=== PATIENT | female | born 1995 | race Caucasian/White ===

== ENCOUNTER 2024-07-25 11:02 | Outpatient (CLI) | payer OTHER, SELFPAY ==
[2024-07-25 11:32] LABS: Basophils Percent Auto 0.4 % (0.2-1.2); Eosinophils Absolute Auto 0.3 K/mm3 (0-0.3); Eosinophils Percent Auto 2.8 % (0-4.4); Hematocrit 39.8 % (37.0-47.0); Hemoglobin 12.9 g/dL (12.0-15.0); Immature Granulocyte Absolute 0.03 K/mm3 (0.00-0.031); Immature Granulocyte Percent A 0.3 % (0-0.5); Lymphocytes Absolute Auto 2.09 K/mm3 (0.9-3.2); Mean Corpuscular HGB Conc 32.4 g/dl (32-36); Mean Corpuscular Hemoglobin 28.2 pg (26-34); Mean Corpuscular Volume 87.1 fl (80-100); Mean Platelet Volume 9.2 fl (7.4-10.4); Monocytes Absolute Auto 0.6 K/mm3 (0.1-0.6); Monocytes Percent Auto 6.7 % (2.6-8.5); Neutrophils Absolute Auto 6.1 K/mm3 (1.3-6.7); Neutrophils Percent Auto 66.8 % (45.5-73.1); Platelet Count Result 280 k/mm3 (150-375); Red Blood Count 4.57 M/mm3 (4.2-5.4); White Blood Count 9.1 K/mm3 (4.5-10.0)
[2024-07-25 11:48] LABS: Anion Gap 9 mmol/L (4-12); Blood Urea Nitrogen 14 mg/dL (7-17); Carbon Dioxide 23 mmol/L (22-30); Chloride 106 mmol/L (98-107); Cholesterol 192 mg/dL (0-200); Estimated Glomerular Filt Rate > 60; Glucose 97 mg/dL (65-110); HDL Direct 52 mg/dL; Potassium 3.9 mmol/L (3.4-5.0); Sodium 138 mmol/L (137-145); Triglycerides 59 mg/dL (<150)
[2024-07-25 11:53] LABS: LDL Cholesterol Direct 118 mg/dL
[2024-07-25 12:57] LABS: Free T4 Free Thyroxine 0.94 ng/mL (0.78-2.19); Vitamin D 25 Hydroxy 17.6 ng/mL
[2024-07-29 09:18] LABS: Thyroid Peroxidase Antibodies 1 IU/mL (<9)
== END 2024-07-25 11:03 | disposition home or self-care (01) ==
LOC: ANHLAB 11:07
PROVIDERS: PCP Family Medicine
DX: E55.9 Vitamin D deficiency, unspecified (principal); E78.5 Hyperlipidemia, unspecified; E03.9 Hypothyroidism, unspecified; Z13.29 Encounter for screening for other suspected endocrine disorder; Z13.0 Encounter for screening for diseases of the blood and blood-forming organs and certain disorders involving the immune mechanism; Z13.1 Encounter for screening for diabetes mellitus; Z83.49 Family history of other endocrine, nutritional and metabolic diseases
CPT/HCPCS: 36415; 80048; 80061; 82306; 84439; 84443; 85025; 86376

== ENCOUNTER 2024-09-10 16:24 | Outpatient (CLI) | payer OTHER, SELFPAY ==
[2024-09-10 17:47] LABS: Free T4 Free Thyroxine 1.07 ng/mL (0.78-2.19)
== END 2024-09-10 16:25 | disposition home or self-care (01) ==
LOC: ANHLAB 16:27
PROVIDERS: PCP Family Medicine
DX: Z13.29 Encounter for screening for other suspected endocrine disorder (principal); E03.9 Hypothyroidism, unspecified
CPT/HCPCS: 36415; 84439; 84443

== ENCOUNTER 2025-04-09 07:10 | Outpatient (CLI) | payer OTHER, SELFPAY ==
--- OUTSIDE RECORDS SUMMARY | 2025-04-09 07:13 | XMS_ITS | Clinical Summary ---
Author Organization [facility] Care Team Providers Care Solar Energy Sales Specialist Name Role Phone Unavailable Primary Care Provider Unavailabl e Social History Tobacco Use Types Packs/Day Years Used Date Smoking Tobacco: Never Assessed Comments Unknown Sex and Gender Information Value Date Recorded Sex Assigned at Not on file Legal Sex Female 8:04 AM [employer] Gender Identity Not on file Sexual Orientation Not on file Plan of Treatment Health Maintenance Due Date Last Done Comments Hepatitis C Virus (HCV) Screening 1997 Hepatitis B Immunization (1 of 3 - 19+ 3-dose series) 2016 Pap Smear 2018 Influenza Immunization (#1) 07/05/202408/04, 09/04/2018 SARS-COV-2 Immunization ( season) 2024 Respiratory Syncytial Virus (RSV) Immunization (Adult) (1 - 1-dose 75+ series) 2072 Meningococcal Immunization (ACWY) Completed 06/06/2015 DTaP/Tdap/Td Immunization Discontinued 2018, 08/14/2019 TdaP Immunization Completed 08/14/2019 Pneumococcal Immunization Combined Aged Out No longer eligible based on patient's age to complete this topic Rotavirus Immunization Aged Out No lo nger eligible based on patient's age to complete this topic
[2025-04-09 07:55] LABS: Cholesterol 168 mg/dL (0-200); HDL Direct 43 mg/dL; Triglycerides 109 mg/dL (<150)
[2025-04-09 08:06] LABS: LDL Cholesterol Direct 87 mg/dL
[2025-04-09 08:33] LABS: Free T4 Free Thyroxine 1.14 ng/dL (0.78-2.19)
[2025-04-09 08:35] LABS: Vitamin D 25 Hydroxy < 12.8 ng/mL
[2025-04-09 09:04] LABS: Hemoglobin A1C 5.3 % (<5.7)
[2025-04-12 14:13] LABS: Insulin Level Total 14.6 uIU/mL
== END 2025-04-09 07:11 | disposition home or self-care (01) ==
LOC: ANHLAB 07:11
PROVIDERS: PCP Family Medicine
DX: E03.9 Hypothyroidism, unspecified (principal); E55.9 Vitamin D deficiency, unspecified; Z68.42 Body mass index [BMI] 45.0-49.9, adult; Z83.3 Family history of diabetes mellitus; Z82.49 Family history of ischemic heart disease and other diseases of the circulatory system
CPT/HCPCS: 36415; 80061; 82306; 83036; 83525; 84439; 84443